=== PATIENT | male | born 1965 | race Caucasian/White ===

== ENCOUNTER 2016-12-19 06:59 | Day surgery (SDC) | payer BC ==
[2016-12-13 13:45] LABS: HEMATOCRIT 49.8 % (40.0-51.0); HEMOGLOBIN 17.3 g/dL (13.6-17.8)
--- NOTE | ~2016-12-19 | OP ---
Record Of Operation [facility] [address] [place]. [address] NAME: BRET PABLO : 63 STATUS : [place] [facility] [place] PAT#: [id number] AGE: 51 ADM/REG DATE : 12/19/16 MR#: [id number] REPORT SERV DATE: 12/19/16 DICTATED BY: PAUL SALTER III DATE: 12/19/16 REPORT STATUS : Draft TRANSCRIBED BY: MODL DATE: 12/19/16 DATE OF PROCEDURE: 12/19/2016 PREOPERATIVE DIAGNOSIS: Medial and lateral epicondylitis, left elbow. POSTOPERATIVE DIAGNOSIS: Medial and lateral epicondylitis, left elbow. SURGICAL PROCEDURE PERFORMED: 1. Release of medial epicondyle (golfer's elbow), left elbow. 2. Release of lateral epicondyle (tennis elbow), left elbow. SURGEON: Paul Salter M.D. ROOF SHINGLER: Brianda Tee. ANESTHESIA: General. ANTIBIOTICS: Ancef 2 g. COMPLICATIONS: None. TOURNIQUET TIME: 40 minutes. CRYSTALLOID: 800 mL. PROCEDURE IN DETAIL: The patient was brought to the operating room, placed on the table in supine position and general anesthesia was induced with an LMA. Pneumatic tourniquet was applied to the left upper extremity. The left upper extremity was prepped and draped in the usual sterile fashion and exsanguinated with a 4-inch Esmarch. Tourniquet was inflated to 250 mmHg. Assuring good anesthesia, a medial incision was made longitudinally from the medial epicondyle distally for approximately 2 to 2.5 cm, dissection was carried down to the common flexor muscle mass off the medial epicondyle. Longitudinal incision was made to dissect through the common flexor insertion. The insertion was undermined from the medial epicondyle with a #15 blade. The tissue was noted to have a lot of granulation tissue, some of this was debrided sharply. A rongeur was used to roughen up the medial epicondyle for healing. The common muscle insertion was then repaired with interrupted 0 Vicryl. After thorough irrigation, subcutaneous tissue was closed 2-0 Vicryl and the skin was closed using running 4-0 Monocryl. 10 mL of 0.5% Marcaine solution was injected for postoperative pain control. Steri-Strips were applied. Attention was turned towards the lateral epicondyle. Longitudinal incision was made from the lateral epicondyle distally for approximately 2.5 cm. The common extensor was incised off the lateral epicondyle. The tendon was released from the lateral epicondyle. It was roughened up with a small rongeur to aid in healing. Abundant fluid was encountered as well from the joint. There was a lot of granulomatous tissue when this was debrided sharply with a #15 blade. Thorough irrigation was carried out. The muscle interval was closed with interrupted 0 Vicryl. Subcutaneous tissue was closed with 4-0 Monocryl, and the skin was closed with Monocryl as well. 10 mL of 0.5% Record Of Operation [facility] [id number] [place]. [address] NAME: BRET PABLO : 63 STATUS : [place] [facility] [place] PAT#: [id number] AGE: 51 ADM/REG DATE : 12/19/16 MR#: [id number] REPORT SERV DATE: 12/19/16 DICTATED BY: PAUL SALTER III DATE: 12/19/16 REPORT STATUS : Draft TRANSCRIBED BY: ADRIAN DATE: 12/19/16 Marcaine solution was injected into the wound for postoperative pain control. Benzoin and Steri-Strips were applied, followed by compressive dressings, and an ulnar gutter splint was applied. Tourniquet was released after 40 minutes. The patient was placed in a sling as well. The patient tolerated the procedure well, brought to the recovery in satisfactory condition. DANUTA/ADRIAN Paul Salter III, M.D. / [id number] CC: Chaparrita Anderson III, M.D.
[~2016-12-19 06:59] MED LIST: ALLEGRA-D24 HOUR PO; ASA5GR PO; ASAB PO; FLONASE NAS; IBU-200200 MG PO; MULTIVITAMI1 PO; PRILO PO; PROSCAR5 PO; SAW PALMETTO PO; ZYRTEC-D ALG PO
== END 2016-12-19 23:59 | disposition home health service (06) ==
LOC: MSC 06:59
PROVIDERS: Orthopaedic Surgery
PROC: 0RNL0ZZ Release Right Elbow Joint, Open Approach (ICD-10-PCS; 2016-12-19)
PROC: 0LN80ZZ Release Left Hand Tendon, Open Approach (ICD-10-PCS; principal; 2016-12-19 08:45)
DX: M77.12 Lateral epicondylitis, left elbow (principal); M77.02 Medial epicondylitis, left elbow; M19.90 Unspecified osteoarthritis, unspecified site; Z90.49 Acquired absence of other specified parts of digestive tract; Z98.890 Other specified postprocedural states
CPT/HCPCS: 85014; 85018; 93005; A9270-GY; J0690; J2250; J2405; J3010